=== PATIENT | female | born 1990 | race Caucasian/White ===

== ENCOUNTER 2022-07-18 12:07 | Emergency (ER) | payer BC ==
[~2022-07-18] VITALS: Ht 154.9 cm; Wt 90.3 kg
[2022-07-18] MEDS ORDERED: BENZONATATE200 MG PO (13:27)
[2022-07-18] MEDS ORDERED: PREDNISONE50 MG PO (13:27)
[2022-07-18] MEDS ORDERED: PROAIR HFA INH8.5 GM PO (13:27)
== END 2022-07-18 13:35 | disposition home or self-care (01) ==
LOC: ER 13:00
DX: R05.9 Cough, unspecified (principal); J45.909 Unspecified asthma, uncomplicated
CPT/HCPCS: 99282